=== PATIENT | female | born 1970 | race Caucasian/White ===

== ENCOUNTER → 2018-03-14 | Outpatient (CLI) | payer BC, OTHER ==
[~2018-03-14] MED LIST: ADVAIR 250-501 EACH IH; AMLODIPINE BESYL5 MG PO; JUNEL1 EAC1 PO; LISINOPRIL20 MG PO
== END ==
LOC: RAD 08:36
DX: Z12.31 Encounter for screening mammogram for malignant neoplasm of breast (principal)

== ENCOUNTER → 2018-06-14 | Outpatient (CLI) | payer OTHER | LOC: CAT 08:46 | DX: Z13.6 Encounter for screening for cardiovascular disorders (principal); E78.00 Pure hypercholesterolemia, unspecified; I25.10 Atherosclerotic heart disease of native coronary artery without angina pectoris ==

== ENCOUNTER → 2019-03-17 | Outpatient (CLI) | payer BC, OTHER | LOC: RAD 03-16 12:59 | DX: Z12.31 Encounter for screening mammogram for malignant neoplasm of breast (principal) ==

== ENCOUNTER → 2021-03-21 | Outpatient (CLI) | payer BC, OTHER | LOC: SJCVCIMAG 08:46 | PROVIDERS: ATTEND Internal Medicine Cardiovascular Disease | DX: I47.1 Supraventricular tachycardia (principal) ==